=== PATIENT | female | born 1990 | race Caucasian/White ===

== ENCOUNTER → 2018-06-23 11:00 | Outpatient (CLI) | payer OTHER, SELFPAY | DX: Z23 Encounter for immunization (principal) | CPT/HCPCS: 90471; 90686 ==

== ENCOUNTER → 2019-07-15 14:57 | Outpatient (CLI) | payer OTHER, SELFPAY | DX: Z23 Encounter for immunization (principal) | CPT/HCPCS: 90471; 90686 ==

== ENCOUNTER → 2019-10-21 07:42 | Outpatient (CLI) | payer OTHER, SELFPAY ==
--- NOTE | 2019-10-21 | DI.US.S_ITS ---
PROCEDURE: US OB >= 14 WEEKS FETUS INDICATIONS: anatomy OUTSIDE/PRIOR DATING DATA: Last menstrual period (LMP): 06/03/19. LMP-based estimated date of delivery ([facility]): 03/09/20. First dating scan (date and location): None. Estimated date of delivery ([facility]) from first dating scan: None. TECHNIQUE: Real-time scanning was performed of the fetus, with image documentation and biometric measurements. Endovaginal scanning: Not performed COMPARISON: None. FINDINGS: General: A single living intrauterine gestation is present. Presentation: Vertex Placenta: Placental position is anterior, without previa. Amniotic fluid index: 13.4 cm, normal range is 5-24 cm. heart rate: 147 beats per minute. Maternal cervical canal: 4.1 cm long. Normal lower limit is 2.5 cm. biometrics: Biparietal diameter: 5 cm, 21 weeks, zero days. Head circumference: 18 cm, 20 weeks, 3 days Abdominal circumference: 16.9 cm, 21 weeks, 6 days Femur length: 3.3 cm, 20 weeks, 2 days Estimated gestational age from initial scan: not applicable. Composite gestational age from present scan: 20 weeks 6 days Estimated weight and percentile: 400 g, 95% Measurement variability for biometric dating: +/- 7 days from 14 weeks to 15 weeks 6 days gestation, +/- 10 days from 16 weeks to 21 weeks 6 days gestation, +/- 2 weeks from 22 weeks to 27 weeks 6 days gestation, +/- 3 weeks for 28 weeks gestation or later. weight reference: 4500 g or EFW >90/95% is considered macrosomia or large for gestational age. EFW <10% is small for gestational age. EFW 5% or less is considered intra-uterine growth restriction. Anatomic survey: Neuro: Ventricles are non-dilated at less than 10 mm. Cisterna magna is normal at 3-11 mm. Cerebellum is normal in size and morphology. Nuchal skin fold: Normal at less than 6 mm between 14-21 weeks gestational age. Face: Nose and lips, facial profile are normal. Spine: No evidence for spina bifida. Heart: 4-chambered heart is present, with normal ventricular outflow tracts. Diaphragm: Diaphragm is intact. Stomach: Left-sided stomach is present. Kidneys: No hydronephrosis. Normal is less than 5 mm in 2nd trimester, less than 7 mm in 3rd trimester. Cord: 3-vessel cord has orthotopic insertion. Bladder: Normal in size. Extremities: All 4 extremities identified. IMPRESSION: 1. Single live intrauterine with normal growth and normal amount of amniotic fluid. 2. Normal anatomic survey. Dictated by: Vernon Brennan M.D. on 10/21/2019 at 12:52 Approved by: Vernon Brennan M.D. on 10/21/2019 at 12:55
== END ==
PROVIDERS: Referring Provider Midwife; Visit Provider Midwife
DX: Z36.89 Encounter for other specified antenatal screening (principal); Z3A.20 20 weeks gestation of pregnancy
CPT/HCPCS: 76811

== ENCOUNTER → 2020-08-28 07:34 | Outpatient (CLI) | payer OTHER, SELFPAY ==
[2020-08-28] MEDS: COVID-19 VACC(MODERNA-1)/PF 100 MCG/0.5 ML VIAL IM (07:45)
== END ==
PROVIDERS: Visit Provider Internal Medicine
DX: Z23 Encounter for immunization (principal)
CPT/HCPCS: 0011A; 91301

== ENCOUNTER → 2020-09-23 13:41 | Outpatient (CLI) | payer OTHER, SELFPAY ==
[2020-09-23] MEDS: COVID-19 VACC #2, MRNA(MOD) 100 MCG/0.5 ML VIAL IM (13:48)
== END ==
PROVIDERS: Visit Provider Internal Medicine
DX: Z23 Encounter for immunization (principal)
CPT/HCPCS: 0012A; 91301

== ENCOUNTER → 2020-10-14 07:17 | Outpatient (CLI) | payer OTHER, SELFPAY ==
[2020-10-14 08:14] LABS: Add Manual Diff / Slide Review NO; Basophils Absolute Auto 100 /uL (0-100); Basophils Percent Auto 1.2 % (0-2); Eosinophils Absolute Auto 200 /uL (0-450); Eosinophils Percent Auto 2.7 % (2-4); Hematocrit 38.6 % (36-46); Hemoglobin 12.9 g/dL (12.0-16.0); Lymphocytes Absolute Auto 2200 /uL (1100-4500); Lymphocytes Percent Auto 28.9 % (25-40); Mean Corpuscular HGB Conc 33.3 % (30-36); Mean Corpuscular Hemoglobin 26.4 PG (26-34); Mean Corpuscular Volume 79.2 fL (80-100); Monocytes Absolute Auto 700 /uL (0-900); Monocytes Percent Auto 8.6 % (3-14); Neutrophils Absolute Auto 4500 /uL (1500-7000); Neutrophils Percent Auto 58.6 % (50-75); Platelet Count 314 X10^3/uL (150-400); Red Blood Cell Count 4.88 X10^6/uL (4.0-5.2); White Blood Cell Count 7.6 X10^3/uL (4.5-11.0)
== END ==
PROVIDERS: Referring Provider Obstetrics & Gynecology; Visit Provider Obstetrics & Gynecology
DX: N92.1 Excessive and frequent menstruation with irregular cycle (principal); Z39.2 Encounter for routine postpartum follow-up
CPT/HCPCS: 36415; 85025

== ENCOUNTER 2021-03-19 11:26 | Emergency (ER) | payer OTHER, SELFPAY ==
[2021-03-19 11:37] VITALS: BP 140/98; PULSE 76; RESP 18; TEMP 36.4; O2SAT 98; BMI 26.5
--- NOTE | 2021-03-19 11:52 | ED_ITS ---
HPI - Wound/Laceration General Chief Complaint: Wound/Laceration Stated Complaint: cut hand on can Time Seen by Provider: 03/19/21 11:33 Source: patient Mode of arrival: Ambulatory History of Present Illness HPI narrative: 30F nonsmoker with noncontributory medical history presents with a chief complaint of an accidental laceration to the base of her right index finger just prior to arrival. She was opening a can tomato sauce and when d ispensing the sharp lid it cut her finger. It bled a fair amount but she denies any numbness, tingling or weakness. She is otherwise well and free of complaint. Tetanus is up-to-date Related Data Home Medications Medication Instructions Recorded Confirmed OMEGA-3 FATTY ACIDS (FISH OIL) 500 mg PO QDAY #0 05/27/16 11/02/20 calcium carbonate 650 mg calcium 650 mg PO QDAY #0 05/27/16 11/02/20 (1,625 mg) tablet multivitamin (Multiple Vitamins) 1 tab PO QDAY #0 tab 05/27/16 11/02/20 vitamin B complex (B 1 tab PO QDAY #0 tab 05/27/16 11/02/20 Complex-Vitamin B12) Previous Rx's Medication Instructions Recorded ibuprofen 600 mg tablet 600 mg PO Q6HP PRN #30 06/03/17 Allergies Allergy/AdvReac Type Severity Reaction Status Date / Time No Known Drug Allergies Allergy Verified 03/19/21 11:40 Review of Systems Review of Systems Narrative: GENERAL: Denies chills, fatigue, malaise, fever, sweats. HEENT: Denies sinus pain, ear pain, sore throat, difficulty swallowing, dizziness. RESPIRATORY: Denies dyspnea, cough, wheezing, hemoptysis, sputum. CARDIOVASCULAR: Denies chest pain, palpitations, orthopnea, edema, GASTROINTESTINAL: Denies nausea, vomiting, abdominal pain, diarrhea, constipation, melena. : Denies dysuria, frequency, incontinence, hematuria, urinary retention. MUSCULOSKELETAL: denies weakness, joint pain, or bony pain SKIN: See HPI NEUROLOGIC: Denies weakness, headache, numbness, change in speech, confusion, seizures, incoordination. PSYCHIATRIC: No concerning psychosocial issues. 12 point review of systems is negative except for those stated above Patient History Surgical History History of third molar tooth extraction Family History Grandmother Smoker COPD (chronic obstructive pulmonary disease) Social History Smoking Status: Never smoker Smoking Status: Never smoker alcohol intake frequency: other Substance Use Type: does not use Exam Narrative Exam Narrative: GEN: AOx3 and in mild distress EYES: Pupils are equal, round, and reactive to light and accommodation. Extraoccular muscles are intact bilaterally. There is no subconjunctival hemorrhage or exudate. CHEST: Lungs are clear to auscultation bilaterally and free of wheezes, rales, or rhonchi. Heart rate is regular rhythm, there are no murmurs, clicks, rubs, or gallops. There is no chest wall tenderness. ABD: Abdomen is soft and nontender. There is no guarding or rebound. Bowel sounds are normal in all 4 quadrants. There is no mass or organomegaly. EXT: 1 cm laceration on the lateral right hand just proximal to the 2nd metacarpal phalangeal joint, no active bleeding, no foreign bodies noted, no arterial involvement or tendon involvement. SKIN: Warm, pink, and dry. No erythema or rash Initial Vital Signs Initial Vital Signs: Vital Signs Temperature 97.6 F 03/19/21 11:37 Pulse Rate 76 03/19/21 11:37 Respiratory Rate 18 03/19/21 11:37 Blood Pressure 140/98 H 03/19/21 11:37 Pulse Oximetry 98 03/19/21 11:37 Procedures Laceration Repair Laceration 1: Site: hand Side (If applicable): right Size (cm): 2 Description: linear Depth: involves muscle layer Local Anesthetic: lidocaine 1% and with bicarb Amount of anesthesia used (mL): 3 Pre-repair: wound explored Skin layer closed with: nylon Size (cm): 4-0 Number of sutures: 3 Technique: simple, interrupted Course Orders Ordered: Discontinued Medications Lidocaine/Sodium Bicarbonate (Lido 1%/Sod Bicarb 8.4% (10ml) 10 Ml Syringe) 10 ml INJ NOW ONE Stop: 03/19/21 11:55 Vital Signs Vital signs: Vital Signs - 8 hr 03/19/21 11:37 Temperature 97.6 F Pulse Rate 76 Respiratory Rate 18 Blood Pressure 140/98 H Pulse Oximetry 98 Discharge Plan Departure Patient Disposition: Home Clinical Impression: Laceration Instructions: DI for Laceration Repair Activity Restrictions/Additional Instructions: Please keep the wound clean and dry to the best of your ability. Please monitor for signs of infection such as redness to the skin or increasing pain. Have the sutures removed by your doctor in about 7 days. If you are unable to get into your doctor, we would be happy to remove the sutures in that same timeframe. Prescriptions: No Action multivitamin [Multiple Vitamins] 1 EACH tablet 1 tab PO QDAY Qty: 0 RF: 0 calcium carbonate 650 MG tablet 650 mg PO QDAY Qty: 0 RF: 0 vitamin B complex [B Complex-Vitamin B12] 1 EACH tablet 1 tab PO QDAY Qty: 0 RF: 0 OMEGA-3 FATTY ACIDS (FISH OIL) 500 mg PO QDAY Qty: 0 RF: 0 ibuprofen 600 MG tablet 600 mg PO Q6HP PRNQty: 30 RF: 0
[2021-03-19] MEDS: LIDO 1%/SOD BICARB 8.4% (10ML) 10 ML SYRINGE INJ (12:28)
== END 2021-03-19 12:29 | disposition home or self-care (01) ==
PROVIDERS: Emergency Provider Emergency Medicine
DX: S61.210A Laceration without foreign body of right index finger without damage to nail, initial encounter (principal); W26.8XXA Contact with other sharp object(s), not elsewhere classified, initial encounter
CPT/HCPCS: 13131; 99283

== ENCOUNTER → 2021-03-27 08:10 | Outpatient (CLI) | payer OTHER, SELFPAY ==
[2021-03-31 23:14] LABS: QuantiFERON Mitogen Value >10.00 IU/mL (.); QuantiFERON TB Gold Plus Negative (Negative); QuantiFERON TB1 Ag Value 0.09 IU/mL (.); QuantiFERON TB2 Ag Value 0.05 IU/mL (.)
== END ==
PROVIDERS: Referring Provider Physician Assistant; Visit Provider Physician Assistant
DX: Z11.1 Encounter for screening for respiratory tuberculosis (principal)
CPT/HCPCS: 36415; 86480

== ENCOUNTER → 2021-06-18 12:44 | Outpatient (CLI) | payer OTHER, SELFPAY | PROVIDERS: Referring Provider Internal Medicine; Visit Provider Internal Medicine | DX: Z23 Encounter for immunization (principal) | CPT/HCPCS: 90471; 90686 ==

== ENCOUNTER → 2021-08-28 07:28 | Outpatient (CLI) | payer OTHER, SELFPAY ==
[2021-08-28 09:09] LABS: Pregnancy Test Serum,Qual Negative (Negative)
== END ==
PROVIDERS: Referring Provider Nurse Practitioner Obstetrics & Gynecology; Visit Provider Nurse Practitioner Obstetrics & Gynecology
DX: Z32.00 Encounter for pregnancy test, result unknown (principal)
CPT/HCPCS: 36415; 84703

== ENCOUNTER → 2022-02-18 08:06 | Outpatient (CLI) | payer OTHER, SELFPAY ==
[2022-02-18 10:27] LABS: Free T4, Direct Thyroxine 0.96 ng/dL (0.78-2.19); T4 Total Thyroxine 6.99 ug/dL (5.5-11.0)
[2022-02-18 10:41] LABS: Thyroid Stimulating Hormone 4.24 uIU/mL (0.47-4.68)
[2022-02-19 07:37] LABS: Thyroid Peroxidase Antibodies <8 IU/mL (0-34)
== END ==
PROVIDERS: Obstetrics & Gynecology Reproductive Endocrinology; PCP Family Medicine
DX: R94.6 Abnormal results of thyroid function studies (principal)
CPT/HCPCS: 36415; 84432; 84436; 84439; 84443; 86376

== ENCOUNTER → 2022-03-22 16:21 | Outpatient (CLI) | payer OTHER, SELFPAY ==
[2022-03-22 19:09] LABS: Free T4, Direct Thyroxine 1.03 ng/dL (0.78-2.19)
[2022-03-22 19:23] LABS: Thyroid Stimulating Hormone 1.24 uIU/mL (0.47-4.68)
[2022-03-23 23:31] LABS: Thyroid Peroxidase Antibodies <8 IU/mL (0-34)
[2022-03-24 18:07] LABS: Anti Thyroglobulin Antibody <1.0 IU/mL (0.0-0.9)
== END ==
PROVIDERS: PCP Family Medicine; Referring Provider Obstetrics & Gynecology Reproductive Endocrinology; Visit Provider Obstetrics & Gynecology Reproductive Endocrinology
DX: R94.6 Abnormal results of thyroid function studies (principal)
CPT/HCPCS: 36415; 84439; 84443; 86376; 86800

== ENCOUNTER → 2022-05-04 08:31 | Outpatient (CLI) | payer OTHER, SELFPAY ==
--- NOTE | 2022-05-04 08:32 | DI.US.S_ITS ---
PROCEDURE: US PELVIC COMPLETE INDICATIONS: Encounter for procreative management and counselin TECHNIQUE: Real-time scanning was performed of the pelvic organs, with image documentation. Additional endovaginal scanning was necessary due to incomplete visualization of the adnexal and endometrial structures by transabdominal scanning. COMPARISON: [facility], US, US PELVIC COMPLETE, 11/02/2020, 11:22. FINDINGS: Uterus: Uterus is anteverted and normal in size at 8.1 x 4.7 x 5 cm. The myometrium is homogeneous. The endometrium measures up to 10 mm combined thickness. Endometrium is hyperechoic with minimal heterogeneity. No definite trilaminar appearance is seen. Ovaries: The right ovary measures 2.7 x 1.7 x 1.4 cm, with a calculated ovarian volume of 3.3 cc. The left ovary measures 2.9 x 1.5 x 2.6 cm, with a calculated ovarian volume of 5.7 cc. The ovaries have a normal sonographic appearance. Greater than 12 small follicles can be seen in each ovary. No adnexal masses are seen. Arterial and venous Doppler flow is seen to each ovary. Other: No pathologic free abdominal or pelvic fluid. IMPRESSION: 1. Pelvic ultrasound is within normal limits. 2. Endometrium measures up to 10 mm in thickness. 3. Normal ovarian volumes with greater than 12 small follicles in each ovary. We strive to produce accurate, complete, and clear reports of imaging services. To assist us in improving patient care, this report was composed using standard report templates and voice recognition software. Therefore, it may contain abnormal punctuation, insertions and/or omissions. Occasional wrong-word or sound-alike substitutions may occur. Though we review the report and make efforts to correct it, we do recommend that the report be read carefully in proper context to recognize any text inaccuracies. Dictated by: Pepe Rowell M.D. on 05/04/2022 at 14:11 Approved by: Pepe Rowell M.D. on 05/04/2022 at 14:34
[2022-05-04 11:06] LABS: Estradiol, Total 195.2 pg/mL
== END ==
PROVIDERS: PCP Family Medicine; Referring Provider Obstetrics & Gynecology Reproductive Endocrinology; Visit Provider Obstetrics & Gynecology Reproductive Endocrinology
DX: Z31.7 Encounter for procreative management and counseling for gestational carrier (principal)
CPT/HCPCS: 36415; 76830; 76856; 82670; 84144

== ENCOUNTER → 2022-05-19 08:01 | Outpatient (CLI) | payer OTHER, SELFPAY ==
[2022-05-19 08:50] LABS: HCG Quantitative /Beta subunit 162.9 mIU/mL
== END ==
PROVIDERS: PCP Family Medicine; Referring Provider Obstetrics & Gynecology Reproductive Endocrinology; Visit Provider Obstetrics & Gynecology Reproductive Endocrinology
DX: Z32.00 Encounter for pregnancy test, result unknown (principal)
CPT/HCPCS: 36415; 84702

== ENCOUNTER → 2022-05-23 08:42 | Outpatient (CLI) | payer OTHER, SELFPAY ==
[2022-05-23 09:30] LABS: HCG Quantitative /Beta subunit 989.6 mIU/mL
[2022-05-23 09:45] LABS: Estradiol, Total 270.5 pg/mL
[2022-05-23 10:03] LABS: Thyroid Stimulating Hormone 1.18 uIU/mL (0.47-4.68)
== END ==
PROVIDERS: PCP Family Medicine; Referring Provider Obstetrics & Gynecology Reproductive Endocrinology; Visit Provider Obstetrics & Gynecology Reproductive Endocrinology
DX: Z32.00 Encounter for pregnancy test, result unknown (principal); Z13.29 Encounter for screening for other suspected endocrine disorder
CPT/HCPCS: 36415; 82670; 84144; 84443; 84702

== ENCOUNTER → 2022-05-31 09:46 | Outpatient (CLI) | payer OTHER, SELFPAY ==
[2022-05-31 12:38] LABS: HCG Quantitative /Beta subunit 14779 mIU/mL
== END ==
PROVIDERS: PCP Family Medicine; Referring Provider Obstetrics & Gynecology Reproductive Endocrinology; Visit Provider Obstetrics & Gynecology Reproductive Endocrinology
DX: Z31.7 Encounter for procreative management and counseling for gestational carrier (principal)
CPT/HCPCS: 36415; 84144; 84702

== ENCOUNTER → 2022-06-07 11:17 | Outpatient (CLI) | payer OTHER, SELFPAY ==
--- NOTE | 2022-06-07 | DI.US.S_ITS ---
PROCEDURE: US OB <= 14 WEEKS FETUS INDICATIONS: SIZE AND DATES OUTSIDE/PRIOR DATING DATA: First dating scan (date and location): 06/07/2022. Estimated date of delivery ([facility]) from first dating scan: 01/27/2023. The calculations are made using the working [place] of 01/27/2023. TECHNIQUE: Real-time transvaginal and trans abdominal scanning was performed of the fetus and maternal pelvic organs, with image documentation. COMPARISON: None. FINDINGS: Embryo: Gestational sac at the uterine fundus containing a fetus with a crown-rump length of 7 millimeters. This corresponds to a gestational age of 6 weeks 4 days. Mildly flattened yolk sac adjacent to the embryo. There is a perigestational hemorrhage measuring 2.1 x 1.7 x 0.6 centimeters just anterior to the gestational sac. Heart rate: 123 beats per minute. Maternal organs: Ovaries normal. IMPRESSION: Single living intrauterine gestation with estimated age of 6 weeks 4 days. Perigestational hemorrhage anterior to the gestational sac measuring 2.1 x 1.7 x 0.6 centimeters. We strive to produce accurate, complete, and clear reports of imaging services. To assist us in improving patient care, this report was composed using standard report templates and voice recognition software. Therefore, it may contain abnormal punctuation, insertions and/or omissions. Occasional wrong-word or sound-alike substitutions may occur. Though we review the report and make efforts to correct it, we do recommend that the report be read carefully in proper context to recognize any text inaccuracies. Dictated by: Hal Powell M.D. on 06/07/2022 at 13:55 Approved by: Hal Powell M.D. on 06/07/2022 at 13:59
== END ==
PROVIDERS: PCP Family Medicine; Referring Provider Obstetrics & Gynecology Reproductive Endocrinology; Visit Provider Obstetrics & Gynecology Reproductive Endocrinology
DX: Z36.87 Encounter for antenatal screening for uncertain dates (principal); Z3A.01 Less than 8 weeks gestation of pregnancy
CPT/HCPCS: 76801; 76817

== ENCOUNTER → 2022-06-21 14:24 | Outpatient (CLI) | payer OTHER, SELFPAY ==
[2022-06-21 15:37] LABS: Thyroid Stimulating Hormone 1.24 uIU/mL (0.47-4.68)
[2022-06-21 15:58] LABS: Estradiol, Total 1071.4 pg/mL
[2022-07-01 07:36] LABS: % Free Progesterone 2.6 % (.); Free Progesterone 87 ng/dL (.); Progesterone, Serum 3330 ng/dL (.)
== END ==
PROVIDERS: PCP Family Medicine; Referring Provider Obstetrics & Gynecology Reproductive Endocrinology; Visit Provider Obstetrics & Gynecology Reproductive Endocrinology
DX: Z31.7 Encounter for procreative management and counseling for gestational carrier (principal)
CPT/HCPCS: 36415; 82670; 84144; 84443; 84999

== ENCOUNTER → 2022-06-28 08:53 | Outpatient (CLI) | payer OTHER, SELFPAY | PROVIDERS: PCP Family Medicine; Referring Provider Obstetrics & Gynecology Reproductive Endocrinology; Visit Provider Obstetrics & Gynecology Reproductive Endocrinology | DX: Z31.7 Encounter for procreative management and counseling for gestational carrier (principal) | CPT/HCPCS: 36415; 84144 ==

== ENCOUNTER → 2022-07-05 08:48 | Outpatient (CLI) | payer OTHER, SELFPAY | PROVIDERS: PCP Family Medicine; Referring Provider Obstetrics & Gynecology Reproductive Endocrinology; Visit Provider Obstetrics & Gynecology Reproductive Endocrinology | DX: Z31.7 Encounter for procreative management and counseling for gestational carrier (principal) | CPT/HCPCS: 36415; 84144 ==

== ENCOUNTER → 2022-07-12 08:55 | Outpatient (CLI) | payer OTHER, SELFPAY | PROVIDERS: PCP Family Medicine; Referring Provider Obstetrics & Gynecology Reproductive Endocrinology; Visit Provider Obstetrics & Gynecology Reproductive Endocrinology | DX: Z31.7 Encounter for procreative management and counseling for gestational carrier (principal) | CPT/HCPCS: 36415; 84144 ==

== ENCOUNTER → 2022-07-18 14:20 | Outpatient (CLI) | payer OTHER, SELFPAY | PROVIDERS: PCP Family Medicine; Referring Provider Internal Medicine; Visit Provider Internal Medicine | DX: Z23 Encounter for immunization (principal) | CPT/HCPCS: 90471; 90686 ==

== ENCOUNTER → 2022-07-19 08:46 | Outpatient (CLI) | payer OTHER, SELFPAY | PROVIDERS: PCP Family Medicine; Referring Provider Obstetrics & Gynecology Reproductive Endocrinology; Visit Provider Obstetrics & Gynecology Reproductive Endocrinology | DX: Z31.7 Encounter for procreative management and counseling for gestational carrier (principal) | CPT/HCPCS: 36415; 84144 ==

== ENCOUNTER → 2022-07-26 08:14 | Outpatient (CLI) | payer OTHER, SELFPAY | PROVIDERS: PCP Family Medicine; Referring Provider Obstetrics & Gynecology Reproductive Endocrinology; Visit Provider Obstetrics & Gynecology Reproductive Endocrinology | DX: Z31.7 Encounter for procreative management and counseling for gestational carrier (principal) | CPT/HCPCS: 36415; 84144 ==

== ENCOUNTER → 2022-08-10 13:35 | Outpatient (CLI) | payer OTHER, SELFPAY ==
--- NOTE | 2022-08-10 | DI.US.S_ITS ---
PROCEDURE: US OB <= 14 WEEKS FETUS INDICATIONS: UNABLE TO SEE FHR IN OFFICE OUTSIDE/PRIOR DATING DATA: IVF transfer: 05/10/2022 of 5-day embryo First dating scan (date and location): 06/07/2022 at . Estimated date of delivery ([facility]) from first dating scan: 01/27/2023. The calculations are made using the working [place] of 01/27/2023. TECHNIQUE: Real-time scanning was performed of the fetus and maternal pelvic organs, with image documentation. Endovaginal scanning was also performed to better visualize the fetus and maternal ovaries. COMPARISON: [facility], , OB <= 14 WEEKS FETUS, 06/07/2022, 11:40. FINDINGS: There is a single IUP with the estimated gestational age 11 weeks 1 day based on the current ultrasound. Based on the working [place], the estimated gestational age is 15 weeks 5 days. There is no heart tone. Maternal organs: Right ovary is normal. Left ovary is not well seen. IMPRESSION: 1. There is a single intrauterine gestation with a pole. The estimated gestational age is 11 weeks 1 day based on the current ultrasound (15 weeks 5 days based on the initial dating ultrasound). There is absence of heart tone. The ultrasound findings are consistent with 1st trimester failure ( demise). The patient provider was present at the time of the scan. We strive to produce accurate, complete, and clear reports of imaging services. To assist us in improving patient care, this report was composed using standard report templates and voice recognition software. Therefore, it may contain abnormal punctuation, insertions and/or omissions. Occasional wrong-word or sound-alike substitutions may occur. Though we review the report and make efforts to correct it, we do recommend that the report be read carefully in proper context to recognize any text inaccuracies. Dictated by: Gage Leon M.D. on 08/11/2022 at 16:06 Approved by: Gage Leon M.D. on 08/11/2022 at 16:15
== END ==
PROVIDERS: PCP Family Medicine; Referring Provider Advanced Practice Midwife; Visit Provider Advanced Practice Midwife
DX: O36.80X0 Pregnancy with inconclusive fetal viability, not applicable or unspecified (principal)
CPT/HCPCS: 76801; 76815; 76817

== ENCOUNTER → 2022-08-12 12:58 | Outpatient (CLI) | payer OTHER, SELFPAY ==
[2022-08-12 13:27] LABS: COVID19 -Nasal RAPID Negative (Negative)
== END ==
PROVIDERS: PCP Family Medicine; Visit Provider Obstetrics & Gynecology
DX: Z01.812 Encounter for preprocedural laboratory examination (principal); Z20.822 Contact with and (suspected) exposure to COVID-19
CPT/HCPCS: 87635

== ENCOUNTER 2022-08-12 13:08 | Day surgery (SDC) | payer OTHER, SELFPAY ==
[2022-08-12] VITALS (9 sets, daily range): BP systolic 101–134; BP diastolic 59–90; PULSE 66–101; RESP 12–18; TEMP 36.4–36.6; O2SAT 97–100; BMI 30.7
--- NOTE | 2022-08-12 | PATH_ITS ---
[facility] Accession Number: [id number] No. of containers..01 Tissue . 01 Material submitted: . product of conception - PRODUCTS OF CONCEPTION . 01 Diagnosis: Products of Conception: First-trimester fetus and associated placental tissue, without definite diagnostic abnormalities. No definite gross abnormalities of the fetus seen, see microscopic description. Negative for significant chronic or acute villitis. Negative for significant infarction or thrombotic vasculopathy. MRV 08/17/2022 1611 Local . 01 Electronically signed: . Andre Phan MD, Pathologist NPI- [id number] . 01 Gross description: . Received in formalin, labeled with the patient's name, , and products of conception, and consists of multiple alcocer, variable spongy to membranous soft tissue fragments admixed with hemorrhagic material aggregating to 12.3 x 9.9 x 2.1 cm. A significantly disrupted fetus is identified. The foot length is 0.6 cm with both left and right feet identified, with five separate toes and a possible overlapping of the smaller toes on the right foot. Both the right and the left hands are present with five separate fingers identified. The palate appears intact. However, the remaining facial features are distorted. No additional remarks can be accurately made about the remaining facial features. A alcocer organ consistent with kidney is identified measuring 0.6 cm in length. No additional organs are grossly identified. [employer] sections are submitted as follows: A1: tissue. A2: Forest[employer] placental tissue. ([id number]) /FRR 08/13/2022 1208 Local . 01 Microscopic: . Examination reveals fetus of late first trimester (11-1/2 weeks gestation per provided chart notes). . No definite gross abnormalities are seen (on a limited gross examination, as the fetus and its facial features appear distorted). Examination of the placental tissue reveals no significant findings. There is rare intervillous fibrin. There is no significant villitis, no significant occlusive/thrombotic vasculopathy. There are no viral inclusions seen. . The findings are overall consistent with demise of late first trimester. . 01 Pathologist provided ICD-10: O02.1 . 01 CPT . 725929 Specimen Comment: A courtesy copy of this report has been sent to [phone] Performed at: 01 [facility] [address] [place] [address], [place], [place] [id number] MD Ap George MD Phone: [phone]
[2022-08-12] MEDS: LACTATED RINGERS 1,000 ML 100 ML IV ×2 (13:15→14:54)
--- NOTE | 2022-08-12 14:09 | PM.HP.1 ---
History of Present Illness History of Present Illness Date Patient Seen: 08/12/22 Time Patient Seen: 14:09 Chief complaint: SDC Narrative: Patient is a 32-year-old 3 para 2 at 15 weeks gestation with a missed . Patient went in for routine visit 2 days ago and there was no heart rate on ultrasound. The baby was only measuring 11 weeks gestation. She has not had any bleeding. Blood type is O-positive. Patient History Medical History (Updated 08/12/22 @ 14:11 by Kerry Mensah MD) Missed Tuberculosis screening Surgical History History of third molar tooth extraction Family & Social History Family History Grandmother Smoker COPD (chronic obstructive pulmonary disease) Social History: household members spouse,children Tobacco & Substance use: Smoking Status Never smoker alcohol intake former alcohol intake frequency other Substance Use Type does not use Meds Home Medications and Allergies Home Medications Medication Instructions Recorded Confirmed Type multivitamin (Multiple Vitamins 1 tab PO QDAY #0 tabs 05/27/16 08/12/22 History tablet) Allergies Allergy/AdvReac Type Severity Reaction Status Date / Time No Known Drug Allergies Allergy Verified 08/12/22 13:16 Exam Vital Signs (past 8 hours): - 08/12/22 13:25 Temperature 97.6 F Pulse Rate 71 Respiratory Rate 18 Blood Pressure 134/72 Pulse Oximetry 98 Oxygen Delivery Method Room Air Oxygen Delivery Method Room Air Narrative Exam Narrative: HEENT: No thyromegaly, no anterior cervical or supraclavicular lymphadenopathy. Lungs:Clear to auscultation bilaterally, no wheezes. Cardiovascular: Regular rate and rhythm, no murmurs, rubs, or gallops. Abdomen: No scars. No hepatosplenomegaly. No masses palpable. External genitalia: Normal Vagina: Normal Cervix: Normal Bimanual exam: 12 Week size uterus. Mobile. Extremities: No edema Assessment & Plan Assessment and plan (1) Missed : Status: Acute Plan: Assessment: 32-year-old 3 para 2 with a missed at 11 weeks gestation Blood type O-positive Plan: Suction D&C The risks, benefits, and alternatives to the procedure were explained to the patient. The risks including bleeding, infection, and uterine perforation. She understands these risks and agrees to proceed. A full par Q was held and consent form was signed. Time Spent With Patient Critical Care time: I spent a total of [] minutes of critical care time on this patient's care today; this time is exclusive of procedural time.
--- NOTE | 2022-08-12 14:12 | PM.PREOP ---
Pre-operative Note COVID-19 COVID-19 status: Negative Result date/Date tested (Pos, Neg/Pending): 08/12/22 Criteria for continued procedure: Non-surgical alternatives not available or appropriate per current SOC Interval Note History & Physical reviewed/Exam performed by Physician: Yes Changes to H&P: No H&P completed within 30 days and has changed as indicated here:: 08/12/22
--- NOTE | 2022-08-12 14:30 | SUR.OPER ---
Lithotomy on padded OR bed, head on pillow, arms secured on padded arm boards at <90 degrees abduction. Legs secured in padded yellow fins stirrups.
--- NOTE | 2022-08-12 15:15 | P.OP_ITS ---
Operative Date/Time/Diagnoses Date of procedure: 08/12/22 Time of procedure: 15:15 Pre-op diagnosis: Missed at 11 and half weeks gestation Post-op diagnosis: same Procedure & Clinicians Procedure: Procedures Operation Date: 08/12/22 14:00 Actual Procedure Side Surgeon oj Suction Dilation and Curettage Kerry Mensah MD Indications: Missed at 11 and half weeks gestation Surgeon: Kerry Mensah Anesthesia Type: General Operative Notes Findings: 12 week size anteverted uterus Large amount of products conception Closure Type: not applicable Specimen(s): products of conception Estimated blood loss (mL): 600 Blood products transfused: none Procedure in detail: After informed consent was obtained, the patient was taken to the operating room where she was placed in the dorsal supine position. After adequate LMA general anesthesia was achieved, she was placed in the dorsal lithotomy position, and prepped and draped in the usual sterile fashion. A time-out was performed. A bivalve speculum was placed into the vagina and the anterior lip of the cervix was grasped with a single-tooth tenaculum. The cervical os was sequentially dilated to the # 11 Hegar dilator. The single-tooth tenaculum pulled through th e cervix at one point. The # 10 curved plastic curette passed easily into the endometrial cavity. Several passes with suction revealed a large amount of tissue as well as blood. The curette was changed to a # 8 curved. This passed easily into the endometrial cavity and showed blood only. The rough inside of the uterine cavity could be felt with the curette. The instruments were removed from the uterus. The single-tooth tenaculum was removed from the anterior lip of the cervix. The tear in the anterior cervical lip was repaired with 2 0 chromic in a running interlocking fashion. 20 units of Pitocin were given in the IV fluids. Bimanual exam and massage was performed yielding a 10 week size well contracted uterus. There was minimal amount of blood coming from the cervical os. Sponge, lap, and instrument counts were correct x2. The patient tolerated the procedure well, and was taken to PACU in stable condition. Complications: other (cervical tear, repaired with 2-0 Chromic in a running interlocking fashion) Post-operative Condition: stable Disposition: PACU Plan for aftercare: Home after recovery
[2022-08-12] MEDS: ACETAMINOPHEN 325 MG TABLET 975 MG PO (15:43)
== END 2022-08-12 16:26 | disposition home or self-care (01) ==
PROVIDERS: PCP Family Medicine; Referring Provider Obstetrics & Gynecology; Visit Provider Obstetrics & Gynecology
PROC: (CPT 58120; principal; 2022-08-12 14:00)
DX: O02.1 Missed abortion (principal); Z3A.11 11 weeks gestation of pregnancy; Z20.822 Contact with and (suspected) exposure to COVID-19
CPT/HCPCS: 59820; 87635; J1100; J1885; J2250; J2405; J2704; J3010

== ENCOUNTER → 2023-02-11 13:18 | Outpatient (CLI) | payer SELFPAY | PROVIDERS: PCP Family Medicine; Visit Provider Nurse Practitioner Family | DX: J02.9 Acute pharyngitis, unspecified (principal) | CPT/HCPCS: 87070 ==

== ENCOUNTER → 2023-06-09 11:07 | Outpatient (CLI) | payer SELFPAY | PROVIDERS: PCP Family Medicine; Referring Provider Family Medicine; Visit Provider Family Medicine | DX: Z23 Encounter for immunization (principal) | CPT/HCPCS: 90471; 90686 ==

== ENCOUNTER 2023-08-28 04:55 | Emergency (ER) | payer OTHER, SELFPAY ==
--- NOTE | 2023-08-28 04:58 | ED.GENADULT ---
HPI - General Adult General Chief complaint: Upper Respiratory Symptoms Stated complaint: upper resp symptoms Time Seen by Provider: 08/28/23 04:58 History of Present Illness HPI narrative: 33-year-old at 13 weeks presents with 6 weeks of upper respiratory symptoms. She notes that symptoms started around Thanksgiving seemed to improve somewhat over the last couple of weeks have worsened again. At this point she is complaining of significant postnasal drip, cough significant enough that she had an episode of emesis earlier this evening. She notes slight loss of voice and feels that she is having trouble breathing in with no wheezing appreciated her cough is nonproductive. She does have 2 other children at home both of whom have had multiple viruses over the same timeframe. She has not complaining of significant fevers, abdominal pain, vaginal discharge Related Data Home Medications Medication Instructions Recorded Confirmed multivitamin (Multiple Vitamins 1 tab PO QDAY #0 tabs 05/27/16 02/11/23 tablet) Previous Rx's Medication Instructions Recorded fluticasone propionate 50 1 spray intranasal Q12H #16 grams 02/11/23 mcg/actuation nasal spray,suspension (Flonase Allergy Relief) prednisone 20 mg tablet 40 mg (2 x 20 mg) PO DAILY #6 tabs 02/11/23 Allergies Allergy/AdvReac Type Severity Reaction Status Date / Time No Known Drug Allergies Allergy Verified 02/11/23 13:17 Review of Systems Review of Systems Narrative: Pertinent positive and negative findings as per HPI Patient History Medical History Missed Tuberculosis screening Surgical History History of third molar tooth extraction Family History Grandmother Smoker COPD (chronic obstructive pulmonary disease) Social History household members: spouse and children Smoking Status: Never smoker alcohol intake: former Smoking Status: Never smoker alcohol intake frequency: other Substance Use Type: does not use Exam Narrative Exam Narrative: General: Healthy appearing, in no acute distress. Able to give a complete and coherent history. Well-nourished well-developed HEENT: Moist mucous membranes, normal sclera with reactive pupils, Neck: No cervical adenopathy Respiratory: Significant dry cough with no rales or rhonchi appreciated. She does have some minor upper airway irritation with slight loss of voice presumably secondary to laryngeal inflammation. 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 Alert and appropriate. Fetus is moving with appropriate heart rate Lab Test results independently reviewed as above. Pertinent findings: We discussed respiratory panel screening and with shared decision-making decided to not proceed with testing as it would not change recommendations for treatment Treatments: She is given 10 mg of oral dexamethasone to help with the laryngeal edema and a saline nebulizer to try and help calm cough slightly. Discussion: 33-year-old woman with cough that has been present for 6 weeks that I suspect is actually 2 discrete viral syndromes sequentially. The current 1 is certainly causing upper respiratory symptoms with laryngeal edema, mild postnasal drip and no concerns for secondary bacterial infection. She is currently using fluticasone and ipratropium nasal inhalers to help with the symptoms. We talked about the use of dextromethorphan and guaifenesin, both category a to help with cough suppressant. She has given a dose of dexamethasone again, safe at this point in her , to help with laryngeal edema. Told her that she could certainly continue using the nasal sprays. Reassurance is given regarding her current status. At this point she is safe for discharge home Additional Information: Apprpriate Treatment for Patients with URI [x] The patient was diagnosed with upper respiratory infection and was not prescribed or dispensed an antibiotic. [SATISFIES MIPS PERFORMANCE] Discharge Plan Departure Patient Disposition: Home Clinical Impression: Acute upper respiratory infection Instructions: EDUARDO for Viral Upper Respiratory Infection -- Adult Activity Restrictions/Additional Instructions: Thank you for coming in today I suspect that this 6 weeks of coughing is actually 2 sequential and separate viruses. This current 1 is obviously causing some laryngeal edema. It likely is 1 of the viruses that would be causing croup in a baby. In adults, it leaves an odd feeling sore throat, hoarseness and a dry cough. I do not see any evidence for secondary bacterial infection and antibiotics are not going to be of any benefit. Brief ultrasound in the emergency department shows a happy moving intrauterine fetus with a heart rate in the 160 range For symptomatic relief Tylenol is always appropriate. You can continue to use the ipratropium and Flonase nose sprays that you have been prescribed. Dextromethorphan and guaifenesin are both safe in (a combination product with both of these is Robitussin DM) to help with cough suppressant. Honey whether it has a tsp of honey your honey in your coffee can also be helpful in reducing cough. I gave you a dose of dexamethasone in the emergency department to see if it might help reduce some of the laryngeal edema. This is how we would treat a child who had croup. You were also given a nebulized saline treatment to see if this would symptomatically help reduce some of the coughing. If you find that you are getting worse or develop any new symptoms, please feel free to return to the emergency department for further evaluation. I wish you the best with the rest of your Prescriptions: No Action fluticasone propionate [Flonase Allergy Relief] 50 mcg/actuation spray,suspension 1 spray intranasal Q12H Qty: 16 0RF Rx Instructions: administer into each nostril prednisone 20 mg tablet 40 mg PO DAILY Qty: 6 0RF multivitamin [Multiple Vitamins] 1 EACH tablet 1 tab PO QDAY Qty: 0 Referrals: Guillermina Monteiro DO [Primary Care Provider] - Stand Alone Forms: Patient Portal/API
[2023-08-28 05:04] VITALS: BP 127/74; PULSE 98; RESP 22; TEMP 37.4; O2SAT 100; BMI 33.0
[2023-08-28] MEDS: DEXAMETHASONE 10 MG/ML VIAL PO (05:20)
[2023-08-28 05:30] VITALS: BP 105/64; PULSE 92; O2SAT 100
== END 2023-08-28 05:43 | disposition home or self-care (01) ==
PROVIDERS: Emergency Provider Emergency Medicine; PCP Family Medicine
DX: O99.511 Diseases of the respiratory system complicating pregnancy, first trimester (principal); J06.9 Acute upper respiratory infection, unspecified; Z3A.13 13 weeks gestation of pregnancy
CPT/HCPCS: 99283; J1100

== ENCOUNTER → 2023-10-16 16:30 | Outpatient (CLI) | payer OTHER, SELFPAY ==
--- NOTE | 2023-10-16 | DI.US.S_ITS ---
PROCEDURE: US OB >= 14 WEEKS FETUS INDICATIONS: ANATOMY SCAN OUTSIDE/PRIOR DATING DATA: Last menstrual period (LMP): 05/31/2023. LMP-based estimated date of delivery ([facility]): 03/06/2024. First dating scan (date and location): 10/16/2023. Estimated date of delivery ([facility]) from first dating scan: 03/04/2024. The calculations are made using the clinical [facility] of 03/06/2024. TECHNIQUE: Real-time scanning was performed of the fetus, with image documentation and biometric measurements. Endovaginal scanning: Not performed. COMPARISON: [facility], OB >= 14 WEEKS FETUS, 10/21/2019, 8:15. FINDINGS: General: A single living intrauterine gestation is present. Presentation: Vertex. Placenta: Placental position is posterior, without previa. Amniotic fluid index: 10.8 cm, normal range is 5-24 cm. Single deepest vertical pocket is 3.2 cm. heart rate: 150 beats per minute. Maternal cervical canal: 3.5 cm long. Normal lower limit is 2.5 cm. biometrics: Biparietal diameter: 4.4 cm, 19 weeks 3 days Head circumference: 16.8 cm, 19 weeks 3 days Abdominal circumference: 15.6 cm, 20 weeks 5 days Femur length: 3.2 cm, 20 weeks 1 day Clinically estimated gestational age: 19 weeks 5 days Composite gestational age from present scan: 20 weeks 0 days Estimated weight and percentile: 346 g, 79th percentile Anatomic survey: Neuro: Ventricles are non-dilated at less than 10 mm. Cisterna magna is normal at 3-11 mm. Cerebellum is normal in size and morphology. Nuchal skin fold: Normal at less than 6 mm between 14-21 weeks gestational age. Face: Nose and lips, facial profile are suboptimally visualized. Spine: No evidence for spina bifida. Heart: 4-chambered heart is present, LVOT is normal. RVOT is not well seen. Diaphragm: Diaphragm is intact. Stomach: Left-sided stomach is present. Kidneys: No hydronephrosis. Normal is less than 5 mm in 2nd trimester, less than 7 mm in 3rd trimester. Cord: 3-vessel cord has orthotopic insertion. Bladder: Normal in size. Extremities: All 4 extremities identified. IMPRESSION: 1. Forde living intrauterine at 20 weeks 0 days based on today's ultrasound. Fetus is in the 79 percentile for weight. 2. Normal placenta and amniotic fluid. 3. profile, nose and lips, and RVOT are not well seen due to positioning. Otherwise normal anatomic survey. Recommend follow-up OB ultrasound. We strive to produce accurate, complete, and clear reports of imaging services. To assist us in improving patient care, this report was composed using standard report templates and voice recognition software. Therefore, it may contain abnormal punctuation, insertions and/or omissions. Occasional wrong-word or sound-alike substitutions may occur. Though we review the report and make efforts to correct it, we do recommend that the report be read carefully in proper context to recognize any text inaccuracies. Dictated by: Qasim Mendez M.D. on 10/17/2023 at 9:59 Approved by: Qasim Mendez M.D. on 10/17/2023 at 10:37
== END ==
PROVIDERS: PCP Family Medicine; Referring Provider Advanced Practice Midwife; Visit Provider Advanced Practice Midwife
DX: Z34.92 Encounter for supervision of normal pregnancy, unspecified, second trimester (principal); Z3A.20 20 weeks gestation of pregnancy
CPT/HCPCS: 76811

== ENCOUNTER → 2023-11-13 13:17 | Outpatient (CLI) | payer OTHER, SELFPAY ==
--- NOTE | 2023-11-13 13:20 | DI.US.S_ITS ---
PROCEDURE: US OB FOLLOW UP INDICATIONS: FOLLOW UP ANATOMY AND GROWTH OUTSIDE/PRIOR DATING DATA: Last menstrual period (LMP): . LMP-based estimated date of delivery ([facility]): 03/06/2024. First dating scan (date and location): Not available. Estimated date of delivery ([facility]) from first dating scan: Not available. The calculations are made using the working [facility] of 03/06/2024. TECHNIQUE: Real-time scanning was performed of the fetus, with image documentation and biometric measurements. Endovaginal scanning: Not performed COMPARISON: [facility], OB >= 14 WEEKS FETUS, 10/16/2023, 16:47. FINDINGS: General: A single living intrauterine gestation is present. Presentation: Vertex. Placenta: Placental position is posterior , without previa. Amniotic fluid index: 19.4 cm, normal range is 5-24 cm. Single deepest vertical pocket is 6.5 cm. heart rate: 162 beats per minute. Maternal cervical canal: 4.5 cm long. Normal lower limit is 2.5 cm. biometrics: Biparietal diameter: 23 weeks 3 days Head circumference: 23 weeks 4 days Abdominal circumference: 24 weeks 4 days Femur length: 24 weeks 0 day Clinically estimated gestational age: 23 weeks 5 days Composite gestational age from present scan: 23 weeks 6 days Estimated weight and percentile: 670 g; 65% for gestational age. Other: facial profile, nose and lips,and the right ventricular outflow tract are visualized and appear normal. IMPRESSION: 1. A single living intrauterine gestation with appropriate interval growth. 2. facial profile, nose and lips, and the right ventricular outflow tract are normal. We strive to produce accurate, complete, and clear reports of imaging services. To assist us in improving patient care, this report was composed using standard report templates and voice recognition software. Therefore, it may contain abnormal punctuation, insertions and/or omissions. Occasional wrong-word or sound-alike substitutions may occur. Though we review the report and make efforts to correct it, we do recommend that the report be read carefully in proper context to recognize any text inaccuracies. Dictated by: Gage Leon M.D. on 11/13/2023 at 15:49 Approved by: Gage Leon M.D. on 11/13/2023 at 15:56
== END ==
PROVIDERS: PCP Student in an Organized Health Care Education/Training Program; Referring Provider Advanced Practice Midwife; Visit Provider Advanced Practice Midwife
DX: Z34.92 Encounter for supervision of normal pregnancy, unspecified, second trimester (principal); Z3A.23 23 weeks gestation of pregnancy
CPT/HCPCS: 76816

== ENCOUNTER → 2023-11-21 07:09 | Outpatient (CLI) | payer OTHER, SELFPAY ==
[2023-11-21 09:17] LABS: Glucose 1 Hour 133 mg/dL (70-170)
[2023-11-21 09:25] LABS: Glucose Tol Interpretation INTERPRETATION
[2023-11-21 10:27] LABS: Glucose 2 Hour 117 mg/dL (70-140)
[2023-11-21 15:18] LABS: Hematocrit 33.7 % (36-46); Hemoglobin 11.1 g/dL (12.0-16.0); Mean Corpuscular Hemoglobin 26.3 PG (26-34); Mean Corpuscular Volume 79.7 fL (80-100); Platelet Count 268 X10^3/uL (150-400); Red Blood Cell Count 4.23 X10^6/uL (4.0-5.2); Red Cell Distribution Width 15.1 % (11.6-14.8); White Blood Cell Count 10.3 X10^3/uL (4.5-11.0)
[2023-11-21 20:13] LABS: Glucose Fasting 82 mg/dL (70-100)
== END ==
PROVIDERS: PCP Student in an Organized Health Care Education/Training Program; Referring Provider Advanced Practice Midwife; Visit Provider Advanced Practice Midwife
DX: Z34.82 Encounter for supervision of other normal pregnancy, second trimester (principal)
CPT/HCPCS: 36415; 82951; 82952; 85027

== ENCOUNTER → 2024-12-09 10:00 | Outpatient (CLI) | payer OTHER, SELFPAY | PROVIDERS: PCP Student in an Organized Health Care Education/Training Program; Referring Provider Physician Assistant; Visit Provider Physician Assistant | DX: R05.1 Acute cough (principal) | CPT/HCPCS: 87070 ==

== ENCOUNTER → 2024-12-25 09:23 | Outpatient (CLI) | payer OTHER, SELFPAY ==
[2024-12-26 23:39] LABS: QuantiFERON Mitogen Value >10.00 IU/mL (.); QuantiFERON Nil Value 0.04 IU/mL (.); QuantiFERON TB Gold Plus Negative (Negative); QuantiFERON TB1 Ag Value 0.03 IU/mL (.); QuantiFERON TB2 Ag Value 0.05 IU/mL (.)
== END ==
PROVIDERS: PCP Student in an Organized Health Care Education/Training Program; Referring Provider Student in an Organized Health Care Education/Training Program; Visit Provider Student in an Organized Health Care Education/Training Program
DX: Z11.1 Encounter for screening for respiratory tuberculosis (principal)
CPT/HCPCS: 36415; 86480

== ENCOUNTER → 2025-03-25 09:00 | Outpatient (CLI) | payer OTHER, SELFPAY ==
[2025-03-25 09:52] LABS: Add Manual Diff / Slide Review NO; Hematocrit 40.4 % (36-46); Hemoglobin 13.4 g/dL (12.0-16.0); Lymphocytes Absolute Auto 1700 /uL (1100-4500); Mean Corpuscular HGB Conc 33.2 % (30-36); Mean Corpuscular Hemoglobin 26.1 PG (26-34); Mean Corpuscular Volume 78.6 fL (80-100); Platelet Count 260 X10^3/uL (150-400)
[2025-03-25 10:03] LABS: Hemoglobin A1C% w Est Avg Glu 5.6 % (4.0-6.0)
[2025-03-25 10:27] LABS: HEMOLYSIS < 15 (0-50); Iron 74 ug/dL (37-170)
[2025-03-25 10:31] LABS: Alanine Aminotransferase 14 IU/L (<35); Albumin 4.5 g/dL (3.5-5.0); Albumin Globulin Ratio 1.6 (1.0-2.8); Alkaline Phosphatase 57 U/L (38-126); Blood Urea Nitrogen 16 mg/dL (7-17); Calcium 9.4 mg/dL (8.4-10.2); Carbon Dioxide 25 mmol/L (22-32); Chloride 105 mmol/L (98-107); Estimated Glomerular Filt Rate > 60 mL/min (>60); Globulin 2.9 g/dL (1.7-4.1); Glucose 82 mg/dL (70-99); HEMOLYSIS 23 (0-50); Potassium 4.1 mmol/L (3.4-5.1); Sodium 140 mmol/L (137-145); Total Protein 7.4 g/dL (6.3-8.2)
[2025-03-25 10:40] LABS: Percent Iron Saturation 17 % (15-50); Total Iron Binding Capacity 425 ug/dL (265-497); Transferrin 361 mg/dL (206-381)
[2025-03-25 11:00] LABS: TSH w/ Reflex to FT4 2.08 uIU/mL (0.47-4.68)
[2025-03-25 11:06] LABS: Ferritin 12 ng/mL (6-137)
== END ==
PROVIDERS: PCP Student in an Organized Health Care Education/Training Program; Referring Provider Student in an Organized Health Care Education/Training Program; Visit Provider Student in an Organized Health Care Education/Training Program
DX: N92.0 Excessive and frequent menstruation with regular cycle (principal)
CPT/HCPCS: 36415; 80053; 82728; 83036; 83540; 83550; 84443; 85025

== ENCOUNTER → 2025-05-29 10:41 | Outpatient (CLI) | payer OTHER, SELFPAY ==
--- NOTE | 2025-05-29 10:42 | DI.US.S_ITS ---
PROCEDURE: US PELVIC COMPLETE INDICATIONS: menorrhagia TECHNIQUE: Real-time scanning was performed of the pelvic organs, with image documentation. Additional endovaginal scanning was necessary due to incomplete visualization of the adnexal and endometrial structures by transabdominal scanning. COMPARISON: [facility], US, US PELVIC COMPLETE, 04/03/2025, 13:49. FINDINGS: Uterus: Uterus is anteverted and normal in size at 8.3 x 5.4 x 4.8 cm. The myometrium is heterogeneous. No discrete uterine fibroids. The endometrium measures 13.9 mm combined thickness. No gross endometrial mass or fluid. Ovaries: The right ovary measures 4.1 x 2.6 x 2.4 cm, with a calculated ovarian volume of 13.0 cc. The left ovary measures 3.3 x 2.8 x 1.6 cm, with a calculated ovarian volume of 7.9 cc. Thick walled anechoic cyst with single internal thick septation is noted measures 1.9 x 1.9 x 2.3 cm in size. This was previously measured at 1.8 x 1.5 x 1.5 cm in size. Thick walled complex cystic structure is noted in left ovary measures 1.7 x 1.3 x 1.1 cm in size. Less than 12 follicles can be seen in each ovary. No adnexal masses are seen. Other: No pathologic free abdominal or pelvic fluid. IMPRESSION: 1. Thick walled cystic structures seen in bilateral ovaries as above. The left ovarian cyst is new since previous study. The right ovarian cyst appears slightly increased in size compared to previous study. Additional ultrasound follow-up in 4-6 weeks is recommended. 2. No endometrial mass or fluid. No discrete uterine fibroids. We strive to produce accurate, complete, and clear reports of imaging services. To assist us in improving patient care, this report was composed using standard report templates and voice recognition software. Therefore, it may contain abnormal punctuation, insertions and/or omissions. Occasional wrong-word or sound-alike substitutions may occur. Though we review the report and make efforts to correct it, we do recommend that the report be read carefully in proper context to recognize any text inaccuracies. Dictated by: Vernon Brennan M.D. on 05/30/2025 at 11:12 Approved by: Vernon Brennan M.D. on 05/30/2025 at 11:14
== END ==
LOC: US 10:42
PROVIDERS: PCP Student in an Organized Health Care Education/Training Program; Referring Provider Student in an Organized Health Care Education/Training Program; Visit Provider Student in an Organized Health Care Education/Training Program
DX: N92.0 Excessive and frequent menstruation with regular cycle (principal); N83.202 Unspecified ovarian cyst, left side; N83.201 Unspecified ovarian cyst, right side
CPT/HCPCS: 76830; 76856